=== PATIENT | male | born 1950 | race Caucasian/White ===

== ENCOUNTER → 2021-12-17 | Outpatient (CLI) | payer OTHER ==
[2021-12-17 17:09] LABS: BASOPHILS ABSOLUTE AUTO 0.08 K/mm3 (0.00-0.23); BASOPHILS PERCENT AUTO 1 % (0-2); EOSINOPHILS ABSOLUTE AUTO 0.22 K/mm3 (0.00-0.68); EOSINOPHILS PERCENT AUTO 2 % (0-6); Hematocrit 46.9 % (37.0-53.0); Hemoglobin 15.3 g/dL (13.5-17.5); IMMATURE GRAN ABSOLUTE AUTO 0.03 K/mm3 (0.00-0.10); IMMATURE GRAN PERCENT AUTO 0 % (0-1); LYMPHOCYTES ABSOLUTE AUTO 2.06 K/mm3 (0.84-5.20); LYMPHOCYTES PERCENT AUTO 19 % (21-46); MONOCYTES ABSOLUTE AUTO 0.72 K/mm3 (0.16-1.47); MONOCYTES PERCENT AUTO 7 % (4-13); Mean Corpuscular HGB 30.9 pg (26.0-34.0); Mean Corpuscular HGB Conc 32.6 g/dL (31.5-36.5); Mean Corpuscular Volume 95 fL (80-100); Mean Platelet Volume 10.9 fL (9.1-12.4); NEUTROPHILS ABSOLUTE AUTO 7.95 K/mm3 (1.96-9.15); NEUTROPHILS PERCENT AUTO 72 % (41-73); Platelet Count 307 K/mm3 (150-400); RDW Coefficient Variation 12.7 % (11.7-14.2); RDW Standard Deviation 44.6 fL (35.1-46.3); Red Blood Cell Count 4.95 M/mm3 (4.30-5.90); White Blood Cell Count 11.06 K/mm3 (4.00-11.30)
[2021-12-17 18:07] LABS: Alanine Aminotransfer (ALT/SGP 33 U/L (12-78); Albumin, Blood 3.9 g/dL (3.4-5.0); Albumin/Globulin Ratio 1.1 (0.8-1.8); Alk Phos 74 U/L (50-136); Anion Gap 6 mmol/L (6-16); Aspartate Aminotrans (AST/SGOT 20 U/L (12-37); Blood Urea Nitrogen 12 mg/dL (8-24); Bun/Creatinine Ratio 16.6 (12.0-20.0); CHOL/HDL RATIO 2.7; CO2, Blood 30 mmol/L (21-32); Calcium, Blood 9.4 mg/dL (8.5-10.1); Chloride, Blood 102 mmol/L (98-108); Cholesterol 140 mg/dL (50-200); Creatinine, Blood 0.72 mg/dL (0.60-1.20); Globulin, Blood 3.6 g/dL (2.2-4.0); Glomerular Filtration Rate 99 (60-); Glucose, Blood 95 mg/dL (70-99); HDL Cholesterol 52 mg/dL (>39); LDL/HDL RATIO 1.3; Low Density Lipoprotein Chol 70 mg/dL (0-110); Potassium, Blood 4.5 mmol/L (3.5-5.5); Sodium, Blood 138 mmol/L (136-145); Total Protein, Blood 7.5 g/dL (6.4-8.2); Triglycerides 91 mg/dL (30-160); Very Low Density Lipoprot Chol 18 mg/dL (6-32)
[2021-12-17 18:11] LABS: Thyroid Stimulating Hormone 0.701 uIU/mL (0.360-4.800)
== END | disposition home or self-care (01) ==
LOC: LAB SHORT 15:47
PROVIDERS: Family Medicine
DX: I10 Essential (primary) hypertension (principal)
CPT/HCPCS: 80053; 80061; 83036; 84443; 85025

== ENCOUNTER → 2022-12-30 | Outpatient (CLI) | payer OTHER | END | disposition home or self-care (01) | LOC: LAB SHORT 17:11 → LAB 17:11 | PROVIDERS: Family Medicine | DX: N40.0 Benign prostatic hyperplasia without lower urinary tract symptoms (principal) | CPT/HCPCS: G0103 ==

== ENCOUNTER 2023-02-07 17:30 | Inpatient (IN) | payer OTHER ==
[2023-02-07] MEDS ORDERED: Aspir 8181 MG PO (17:52)
[2023-02-07] MEDS ORDERED: ATOR40TA PO (17:52)
[2023-02-07] MEDS ORDERED: CYCL10 PO (17:52)
[2023-02-07] MEDS ORDERED: Norco 7.5-3251 EACH PO (17:53)
[2023-02-07] MEDS ORDERED: Prinivil10 MG PO (17:53)
[2023-02-07] MEDS ORDERED: FAMO40 PO (17:53)
[2023-02-07 18:22] LABS: BASOPHILS ABSOLUTE AUTO 0.06 K/mm3 (0.00-0.23); BASOPHILS PERCENT AUTO 0 % (0-2); EOSINOPHILS ABSOLUTE AUTO 0.04 K/mm3 (0.00-0.68); EOSINOPHILS PERCENT AUTO 0 % (0-6); Hematocrit 40.9 % (37.0-53.0); Hemoglobin 13.4 g/dL (13.5-17.5); IMMATURE GRAN ABSOLUTE AUTO 0.14 K/mm3 (0.00-0.10); IMMATURE GRAN PERCENT AUTO 1 % (0-1); LYMPHOCYTES ABSOLUTE AUTO 1.19 K/mm3 (0.84-5.20); LYMPHOCYTES PERCENT AUTO 8 % (21-46); MONOCYTES ABSOLUTE AUTO 0.85 K/mm3 (0.16-1.47); MONOCYTES PERCENT AUTO 5 % (4-13); Mean Corpuscular HGB 30.2 pg (26.0-34.0); Mean Corpuscular HGB Conc 32.8 g/dL (31.5-36.5); Mean Corpuscular Volume 92 fL (80-100); Mean Platelet Volume 10.5 fL (9.1-12.4); NEUTROPHILS ABSOLUTE AUTO 13.35 K/mm3 (1.96-9.15); NEUTROPHILS PERCENT AUTO 85 % (41-73); Platelet Count 352 K/mm3 (150-400); RDW Coefficient Variation 12.6 % (11.7-14.2); Red Blood Cell Count 4.43 M/mm3 (4.30-5.90); White Blood Cell Count 15.63 K/mm3 (4.00-11.30)
[2023-02-07 18:32] LABS: Albumin, Blood 2.6 g/dL (3.4-5.0); Albumin/Globulin Ratio 0.7 (0.8-1.8); Bilirubin, Total 0.6 mg/dL (0.1-1.0); Bun/Creatinine Ratio 20.6 (12.0-20.0); Calcium, Blood 8.5 mg/dL (8.5-10.1); Creatinine, Blood 0.78 mg/dL (0.60-1.20); Globulin, Blood 3.7 g/dL (2.2-4.0); Potassium, Blood 4.4 mmol/L (3.5-5.5); Total Protein, Blood 6.3 g/dL (6.4-8.2)
[2023-02-07] MEDS ORDERED: LIDO700A20 TOP (21:05)
[2023-02-07] MEDS ORDERED: TAMSULOSIN HCL0.4 M1 PO (21:09)
[2023-02-07 21:14] LABS: Influenza A, PCR NEGATIVE (NEGATIVE); Influenza B, PCR NEGATIVE (NEGATIVE); Resp Syncytial Virus, PCR NEGATIVE (NEGATIVE); SARS-Cov-2 (COVID-19) PCR, MMC NEGATIVE (NEGATIVE)
[2023-02-07 22:28] VITALS: BP 143/90
[2023-02-08 02:15] LABS: BASOPHILS ABSOLUTE AUTO 0.05 K/mm3 (0.00-0.23); BASOPHILS PERCENT AUTO 0 % (0-2); EOSINOPHILS ABSOLUTE AUTO 0.01 K/mm3 (0.00-0.68); EOSINOPHILS PERCENT AUTO 0 % (0-6); Hematocrit 42.5 % (37.0-53.0); Hemoglobin 14.4 g/dL (13.5-17.5); IMMATURE GRAN ABSOLUTE AUTO 0.14 K/mm3 (0.00-0.10); IMMATURE GRAN PERCENT AUTO 1 % (0-1); LYMPHOCYTES ABSOLUTE AUTO 0.51 K/mm3 (0.84-5.20); LYMPHOCYTES PERCENT AUTO 3 % (21-46); MONOCYTES ABSOLUTE AUTO 0.07 K/mm3 (0.16-1.47); MONOCYTES PERCENT AUTO 1 % (4-13); Mean Corpuscular HGB 30.6 pg (26.0-34.0); Mean Corpuscular HGB Conc 33.9 g/dL (31.5-36.5); Mean Corpuscular Volume 90 fL (80-100); Mean Platelet Volume 10.4 fL (9.1-12.4); NEUTROPHILS ABSOLUTE AUTO 14.19 K/mm3 (1.96-9.15); NEUTROPHILS PERCENT AUTO 95 % (41-73); Platelet Count 371 K/mm3 (150-400); RDW Coefficient Variation 12.5 % (11.7-14.2); RDW Standard Deviation 41.5 fL (35.1-46.3); Red Blood Cell Count 4.71 M/mm3 (4.30-5.90); White Blood Cell Count 14.97 K/mm3 (4.00-11.30)
[2023-02-08 02:50] LABS: Albumin, Blood 2.8 g/dL (3.4-5.0); Albumin/Globulin Ratio 0.7 (0.8-1.8); Bilirubin, Total 0.4 mg/dL (0.1-1.0); Bun/Creatinine Ratio 28.1 (12.0-20.0); Calcium, Blood 8.9 mg/dL (8.5-10.1); Creatinine, Blood 0.68 mg/dL (0.60-1.20); Globulin, Blood 4.3 g/dL (2.2-4.0); Potassium, Blood 4.5 mmol/L (3.5-5.5); Total Protein, Blood 7.1 g/dL (6.4-8.2)
[2023-02-08 03:38] VITALS: BP 133/97
--- NOTE | 2023-02-08 05:53 | NUR ---
SHIFT SUMMARY 72 YR M ADMITTED ON 02/07/23 FOR COPD EXACERBATION. DNR. PT WAS ORIGINALLY LISTED A FULL CODE BUT EXPRESSED TO HOSPITALIST THE HE WANTED TO BE DNR SO CODE STATUS WAS CHANGED. PER REPORT FROM ED, PT WAS TOLD TODAY THAT HE HAD LUNG CANCER. UPON ASSESSING PT, HE EXPRESSED TO THIS NURSE THAT HE HAD NOT BEEN GIVEN THAT INFORMATION. 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 PER INAGING, PT WAS ALSO DX WITH FX OF L2. PT STATED HE HAD A FALL MONTHS AGO AND HAS LOWER BACK PAIN SINCE THEN BUT HE WAS NOT AWARE OF THE FX. HE IS ON 2 L 02 AND HIS BREATHING IS LABORED BUT SATS ARE IN THE MID 90'2. SHE STATES THE HEAVY BREATHING IS NORMAL AND HE IS ON RA AT BASELINE. PT HAS BEEN EDUCATED ON IGNITION DANGER AND FIRE HAZARDS WHILE SMOKING WHENOXYGEN IS IN USE.
[2023-02-08 07:31] VITALS: BP 130/80
[2023-02-08] MEDS ORDERED: MULTI-VITAMIN1 EAC2 PO (09:24)
--- NOTE | 2023-02-08 10:54 | NUR ---
Received phone call from ANTONIO Huff in the [place] [facility]. Daria provides update and concerns regarding MRI results. She reports completing an AD with Pt and broaching the subject of hospice with Pt. Daria will obtain copy of directive she completed with Pt and fax to this RN for hospital medical records. Spoke with Dr Choudhary this AM prior to visiting with Pt and reviewed plan of care. Pt resting in bed and is A&OX4. Pt reports a tolerable 3/10 pain. He reports denying need for [place] for pain as he takes this at home with little benefit. He reports Ibuprofen is most beneficial with managing his pain. Pt denies nausea, reports dyspnea and anxiety. Pt's Selina and Pt's daughter Thuan are at bedside. Pt reports living with his , daughter Thuan lives in [facility], and has a son who lives in [facility]. Pt is a and reports serving in the [employer]. This RN thanked him for his service. Pt reports over the last few weeks he has become more tired and less energy. He reports not keeping up with his chores such as mowing the lawn but remains independent of his ADLs. He reports falling in to a sitting position in the shower recently, spouse reports surprise as Pt did not reveal this with her. Continued therpautic listening. Pt reports significant decrease in appetite over the last couple of weeks. Instructed if decreased appetite continues to discuss with PCP regarding appetite stimulates if appropriate. Engaged in gentle discussion regarding advanced care planning including planning for the future. Continued therapeutic listening and answered questions. Pt reports some impatatience and anxiety and wanting to move forward with work up of potential cancer diagnosis in order to know what to expect. Pt and family expresses appreciation and reports no other concerns at this time. Spoke with Pt's Primary RN Suzette and discussed case. Plan: Monitor for symptom management and supportive visits as needed. Palliative Care will remain available.
[2023-02-08 15:52] VITALS: BP 130/85
--- NOTE | 2023-02-08 18:08 | NUR ---
Pt's daughter in [facility] speaking with Primary RN Suzette requesting to see hospitalist to go over latest imaging results. Daughter request this RN to be present to answer any questions after physician leaves. Dr Elliott arrives and discusses results. Dr Elliott remains behind and answers questions. This RN remained behind, offered therapeutic listening and answered questions. Presented potential options and encouraged to see oncologist to learn more about options before making any decisions. Family expresses appreciation and reports no other concerns at this time. Scheduling has been problematic with getting diagnostics in a timely manner and may benefit from physician scheduling before his next PCP appointment. Palliative Care will remain available
--- NOTE | 2023-02-08 18:33 | NUR ---
SHIFT SUMMARY PT UP TO BATHROOM INDEPENDENTLY WITH RESP DISTRESS AND INCREASED BACK PAIN WITH MOVEMENT THAT SLOWLY RESOLVES WHEN HE RETURNS TO BED. FAMILY AT BEDSIDE MOST OF THE DAY. PALLIATIVE CARE IN WITH PT ON AND OFF WELL AND HELPED TO DISCUSS CT SCAN WITH MD THIS AFTERNOON. SLEEPING ON AND OFF THROUGH THE DAY.
[2023-02-08 19:06] VITALS: BP 148/89
[2023-02-09 05:01] VITALS: BP 145/94
--- NOTE | 2023-02-09 05:16 | NUR ---
SHIFT PRISCILANARY 72 YR M ADMITTED ON 02/07/23 FOR COPD EXACERBATION. DNR. NO ACUTE CHANGES THIS SHIFT. PT HAS SLEPT FOR MOST OF THIS SHIFT. HE AMBULATES INDEPENDANTLY TO THE BATHROOM BUT GETS SOB WITH EXERTION, EVEN WHEN KEEPING HIS O2 ON. HE IS PLEASANT AND COOPERATIVE WITH CARE. PT HAS BEEN EDUCATE ON IGNITION DANGER AND FIRE SAFETY REGARDING SMOKING WHILE OXYGEN IS IN USE.
[2023-02-09 06:24] LABS: BASOPHILS ABSOLUTE AUTO 0.03 K/mm3 (0.00-0.23); BASOPHILS PERCENT AUTO 0 % (0-2); EOSINOPHILS PERCENT AUTO 0 % (0-6); Hemoglobin 13.3 g/dL (13.5-17.5); IMMATURE GRAN PERCENT AUTO 1 % (0-1); LYMPHOCYTES ABSOLUTE AUTO 0.61 K/mm3 (0.84-5.20); LYMPHOCYTES PERCENT AUTO 3 % (21-46); MONOCYTES ABSOLUTE AUTO 0.73 K/mm3 (0.16-1.47); MONOCYTES PERCENT AUTO 4 % (4-13); Mean Corpuscular HGB 30.4 pg (26.0-34.0); Mean Corpuscular HGB Conc 34.1 g/dL (31.5-36.5); Mean Corpuscular Volume 89 fL (80-100); Mean Platelet Volume 10.3 fL (9.1-12.4); NEUTROPHILS ABSOLUTE AUTO 18.99 K/mm3 (1.96-9.15); NEUTROPHILS PERCENT AUTO 93 % (41-73); Platelet Count 391 K/mm3 (150-400); RDW Coefficient Variation 12.6 % (11.7-14.2); RDW Standard Deviation 41.2 fL (35.1-46.3); Red Blood Cell Count 4.37 M/mm3 (4.30-5.90); White Blood Cell Count 20.46 K/mm3 (4.00-11.30)
[2023-02-09 07:03] LABS: Bun/Creatinine Ratio 36.5 (12.0-20.0); Calcium, Blood 8.9 mg/dL (8.5-10.1); Creatinine, Blood 0.63 mg/dL (0.60-1.20); Potassium, Blood 4.6 mmol/L (3.5-5.5)
[2023-02-09 07:48] VITALS: BP 148/93
--- NOTE | 2023-02-09 10:18 | NUR ---
Pt resting in bed upon arrival. Pt expresses appreciation about going home today. Spouse Selina at bedside. Offered brief supportive visit and answered questions. Pt and family expresses appreciation and report no concerns at this time. Palliative Care will remain available
--- NOTE | 2023-02-09 11:09 | NUR ---
Spiritual Care Consult from Dr. Islas Pt. is awake in his bed and welcomes my visit. Pt. verbalizes that he does not practice jewish and that his designation on his chart dates back to his days in the . Pt. is unsettled however with his recent terminal diagnosis. Supported the Pt. by facilitating a life review and listening with empathy and interest. 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
[2023-02-09] MEDS ORDERED: IBUP600 PO (11:43)
[2023-02-09] MEDS ORDERED: PRED20 PO (11:43)
[2023-02-09] MEDS ORDERED: ACET325 PO (11:43)
[2023-02-09] MEDS ORDERED: IPRAT-ALBUT 0.5-3 ML INH (11:44)
--- NOTE | 2023-02-09 13:30 | NUR ---
DISCHARGE INSTRUCTIONS COMPLETED AND DISCUSSED WITH PT EXPRESSING UNDERSTANDING WITH AND DAUGHTER IN ATTENDANCE. BROUGHT HOME O2 IN FOR DISCHARGE. [facility] TO [facility]IA [facility]/C.
[2023-02-10 15:09] LABS: A/G RATIO 0.8 (0.7-1.7); ALBUMIN 2.8 g/dL (2.9-4.4); ALPHA-1-GLOBULIN 0.3 g/dL (0.0-0.4); ALPHA-2-GLOBULIN 0.9 g/dL (0.4-1.0); BETA GLOBULIN 0.9 g/dL (0.7-1.3); GAMMA GLOBULIN 1.3 g/dL (0.4-1.8); GLOBULIN, TOTAL 3.4 g/dL (2.2-3.9); M-SPIKE Not Observed g/dL (Not Observed); PROTEIN, TOTAL, SERUM 6.2 g/dL (6.0-8.5)
== END 2023-02-09 13:31 | disposition home or self-care (01) | DRG 193 ==
LOC: ER 17:30 → MEDS 17:31
PROVIDERS: Emergency Medicine; Family Medicine; Student in an Organized Health Care Education/Training Program; ADMIT Internal Medicine
DX: J18.9 Pneumonia, unspecified organism (principal); J96.01 Acute respiratory failure with hypoxia; J44.1 Chronic obstructive pulmonary disease with (acute) exacerbation; R64 Cachexia; M48.56XA Collapsed vertebra, not elsewhere classified, lumbar region, initial encounter for fracture; J44.0 Chronic obstructive pulmonary disease with (acute) lower respiratory infection; Z68.1 Body mass index [BMI] 19.9 or less, adult; M54.50 Low back pain, unspecified; F17.210 Nicotine dependence, cigarettes, uncomplicated; R91.1 Solitary pulmonary nodule; Z66 Do not resuscitate; E78.5 Hyperlipidemia, unspecified; Z86.73 Personal history of transient ischemic attack (TIA), and cerebral infarction without residual deficits; Z79.82 Long term (current) use of aspirin; Z79.899 Other long term (current) drug therapy; Z20.822 Contact with and (suspected) exposure to COVID-19
CPT/HCPCS: 0241U; 36415; 71260; 74176; 80048; 80053; 83880; 84145; 84484; 85025; 93005; 93010; 94640; 94664; 94760; 96365-59; 96375-59; 97110; 97161; 97166; 97530; 97535; 99285-25; A9270; J0456; J0696; J1650; J2930; J7050; Q9967

== ENCOUNTER 2023-02-15 20:20 | Inpatient (IN) | payer OTHER ==
[~2023-02-15] VITALS: Ht 172.7 cm; Wt 55.0 kg
[~2023-02-15 20:20] MED LIST: ACET325 PO; ATOR40TA PO; Aspir 8181 MG PO; CYCL10 PO; FAMO40 PO; IBUP600 PO; IPRAT-ALBUT 0.5-3 ML INH; LIDO700A20 TOP; MULTI-VITAMIN1 EAC2 PO; Norco 7.5-3251 EACH PO; PRED20 PO; Prinivil10 MG PO; TAMSULOSIN HCL0.4 M1 PO
[2023-02-15 21:13] LABS: BASOPHILS ABSOLUTE AUTO 0.03 K/mm3 (0.00-0.23); BASOPHILS PERCENT AUTO 0 % (0-2); EOSINOPHILS ABSOLUTE AUTO 0.01 K/mm3 (0.00-0.68); EOSINOPHILS PERCENT AUTO 0 % (0-6); Hemoglobin 14.9 g/dL (13.5-17.5); IMMATURE GRAN ABSOLUTE AUTO 0.08 K/mm3 (0.00-0.10); IMMATURE GRAN PERCENT AUTO 0 % (0-1); LYMPHOCYTES ABSOLUTE AUTO 0.72 K/mm3 (0.84-5.20); LYMPHOCYTES PERCENT AUTO 4 % (21-46); MONOCYTES PERCENT AUTO 4 % (4-13); Mean Corpuscular HGB 30.2 pg (26.0-34.0); Mean Corpuscular HGB Conc 33.1 g/dL (31.5-36.5); Mean Corpuscular Volume 91 fL (80-100); Mean Platelet Volume 10.4 fL (9.1-12.4); NEUTROPHILS ABSOLUTE AUTO 16.72 K/mm3 (1.96-9.15); NEUTROPHILS PERCENT AUTO 92 % (41-73); Platelet Count 502 K/mm3 (150-400); RDW Coefficient Variation 12.7 % (11.7-14.2); RDW Standard Deviation 43.1 fL (35.1-46.3); Red Blood Cell Count 4.93 M/mm3 (4.30-5.90); White Blood Cell Count 18.26 K/mm3 (4.00-11.30)
[2023-02-15 21:28] LABS: Albumin, Blood 3.1 g/dL (3.4-5.0); Albumin/Globulin Ratio 0.8 (0.8-1.8); Bilirubin, Total 0.5 mg/dL (0.1-1.0); Calcium, Blood 8.7 mg/dL (8.5-10.1); Creatinine, Blood 0.63 mg/dL (0.60-1.20); Globulin, Blood 3.8 g/dL (2.2-4.0); Potassium, Blood 4.6 mmol/L (3.5-5.5); Total Protein, Blood 6.9 g/dL (6.4-8.2)
[2023-02-16] VITALS (7 sets, daily range): BP systolic 129–163; BP diastolic 78–94
--- NOTE | 2023-02-16 01:30 | NUR ---
ARRIVAL TO PCU9 / SAFETY & EDUCATION PT ARRIVED TO PCU9 AT APPROXIMATELY 0115. PT TRANSFERED FROM [facility] TO HOSPITAL BED WITH SBA. PT STOOD AN USED URINAL AT BEDSIDE UPON ARRIVAL. PT A&Ox4, COMMUNICATES NEEDS APPROPRIATELY, ORIENTED TO CALL LIGHT/UNIT/ BP STABLE, ST 100's, DENIES CP/PRESSURE. SpO2> 92% 3L VIA NC, REPORTS SOB AT REST. FAMILY AT BEDSIDE DURING ADMISSION. BED IN LOWEST POSITION, CALL LIGHT IN REACH. PT & FAMILY EDUCATED RE: IGINITION SOURCES AND RISK OF INJURY WHILE OXYGEN IS IN USE. PT DENIES SMOKING & PT AND FAMILY VERBALIZE UNDERSTANDING.
[2023-02-16] MEDS ORDERED: Norco 7.5-3251 EACH PO (01:34)
[2023-02-16 04:23] LABS: BASOPHILS ABSOLUTE AUTO 0.01 K/mm3 (0.00-0.23); BASOPHILS PERCENT AUTO 0 % (0-2); EOSINOPHILS PERCENT AUTO 0 % (0-6); Hematocrit 41.4 % (37.0-53.0); Hemoglobin 13.7 g/dL (13.5-17.5); IMMATURE GRAN ABSOLUTE AUTO 0.06 K/mm3 (0.00-0.10); IMMATURE GRAN PERCENT AUTO 0 % (0-1); LYMPHOCYTES PERCENT AUTO 4 % (21-46); MONOCYTES ABSOLUTE AUTO 0.23 K/mm3 (0.16-1.47); MONOCYTES PERCENT AUTO 2 % (4-13); Mean Corpuscular HGB 30.2 pg (26.0-34.0); Mean Corpuscular HGB Conc 33.1 g/dL (31.5-36.5); Mean Corpuscular Volume 91 fL (80-100); Mean Platelet Volume 10.5 fL (9.1-12.4); NEUTROPHILS ABSOLUTE AUTO 12.69 K/mm3 (1.96-9.15); NEUTROPHILS PERCENT AUTO 94 % (41-73); Platelet Count 343 K/mm3 (150-400); RDW Coefficient Variation 12.7 % (11.7-14.2); RDW Standard Deviation 42.5 fL (35.1-46.3); Red Blood Cell Count 4.53 M/mm3 (4.30-5.90); White Blood Cell Count 13.49 K/mm3 (4.00-11.30)
--- NOTE | 2023-02-16 04:41 | NUR ---
SHIFT SUMMARY SEE PREVIOUS NOTE A&Ox4, CALLS AND COMMUNICATES NEEDS APPROPRIATELY. BP STABLE, SR-ST 80-100's, DENIES CP/PRESSURE. SpO2> 92% 3L VIA NC OR BIPAP w/ 3L BLEED IN. REPORTS SOB AT REST. CONTINENT OF URINE, USES URINAL AT BEDSIDE WITH ASSISTANCE. NO BM THIS SHIFT. LR INFUSING PER EMAR. NO OTHER EVENTS, WILL REPORT TO ONCOMING RN.
[2023-02-16 04:47] LABS: Albumin, Blood 2.7 g/dL (3.4-5.0); Albumin/Globulin Ratio 0.8 (0.8-1.8); Bilirubin, Total 0.3 mg/dL (0.1-1.0); Bun/Creatinine Ratio 36.6 (12.0-20.0); Calcium, Blood 8.4 mg/dL (8.5-10.1); Creatinine, Blood 0.55 mg/dL (0.60-1.20); Globulin, Blood 3.4 g/dL (2.2-4.0); Potassium, Blood 4.3 mmol/L (3.5-5.5); Total Protein, Blood 6.1 g/dL (6.4-8.2)
--- NOTE | 2023-02-16 05:55 | NUR ---
NOTIFIED PHYSICIAN PT SAT UP AT EDGE OF BED, BECAME VERY SOB ANXIOUS. WORK OF BREATHING BECAME SIGNIFICANTLY INCREASED. HR UP TO 130's, D/T PT MOVING AND BEING RESTLESS THIS RN WAS UNABLE TO GET AN ACCURATE SpO2. RT NOTIFED AND CAME TO BEDSIDE. PHYSICIAN NOTIFIED OF EVENT, THIS RN REQUESTED SOMETHING FOR ANXIETY. PHYSICIAN STATED THAT THEY WOULD THINK ABOUT IT AND LOOK INTO CHART. NO NEW ORDERS AT THIS TIME. BED IN LOWEST POSITION, CALL LIGHT IN REACH, BED ALARM ON, BREATHING TREATMENT BEING ADMINISTERED THROUGH BIPAP.
[2023-02-16 08:42] LABS: PCO2 Arterial 42.8 mmHg (35-45); PO2 Arterial 60.5 mmHg (80-100); pH Blood Arterial 7.47 (7.35-7.45)
--- NOTE | 2023-02-16 10:23 | NUR ---
ASSUMED CARE: ASSUMED CARE OF PT APPROX 0715. PT A&OX4, SITTING UP IN BED WITH BIPAP ON. RT AT BEDSIDE THIS AM FOR BREATHING TREATMENT. PT UP AT BEDSIDE TO USE URINAL, RR INCREASE WITH EXERTION. PT REPORTS SOB/DIFFICULTY BREATHING. SPO2 >90%, RR DECREASED TO <20 AT REST. HOB ELEVATED. NO FURTHER NEEDS AT THIS TIME, CALL LIGHT WITHIN REACH.
--- NOTE | 2023-02-16 10:47 | NUR ---
Breif supportive visit this AM. Pt resting in bed and on BIPAP. Difficult to understand Pt due to BIPAP mask and when Pt's attempts to speak alarm sounds. Pt agreeable for this RN to F/U when able to take breaks off BIPAP. Palliative Care will remain available
--- NOTE | 2023-02-16 11:04 | NUR ---
SAFETY EDUCATION: PT EDUCATED ON FIRE SAFETY AND IGNITION SOURCES AT THE HOSPITAL. PT VOICED UNDERSTANDING.
--- NOTE | 2023-02-16 13:08 | NUR ---
Received call reporting Pt's family has arrived and would like to speak with Palliative Care. Pt resting in bed and wearing BIPAP. Pt's and sister at bedside. Listened as Pt and family reporting Pt consider " with dignity". Provided information regarding with dignity and discussed considering hospice. Pt reports plan to Follow through with PET scan and speaking with oncology. He reports no definite plan and goal is to obtain as much information regarding his options. Continued therapeutic listening and answered questions. Brief and gentle education on advanced care planning. Pt and family express appreciation and report no other concerns at this time. Spoke with Primary RN Shavon and discussed case. Palliative Care will remain available
--- NOTE | 2023-02-16 17:25 | NUR ---
SHIFT SUMMARY: PT A&OX4, ABLE TO CALL AND MAKE NEEDS KNOWN TO STAFF. HR MOSTLY 90'S-110'S. SBP 140'S-160'S, PT DENIES CP/PRESSURE. SPO2 >90% ON 7L NC OR BIPAP WITH 6L BLEED IN. PT REPORTS SOB AT REST, WORSENS WITH EXERTION. PT WITH C/O PAIN IN LOWER BACK, MEDICATED PER EMAR. PT CONTINENT OF URINE, ABLE TO USE URINAL AT BEDSIDE WITH SBA. NO BM'S THIS SHIFT. NS AND ZOSYN INFUSING PER EMAR. FAMILY AT BEDSIDE. CALL LIGHT WITHIN REACH, NO FURTHER NEEDS AT THIS TIME. WILL REPORT TO ONCOMING RN.
[2023-02-17 04:13] VITALS: BP 125/83
[2023-02-17 04:41] LABS: Base Excess Venous 6.8 mmol/L; Bicarbonate Venous 30.1 mmol/L (24.0-30.0); PCO2 Venous 39.6 mmHg (38-42); pH Blood Venous 7.49 (7.34-7.37)
[2023-02-17 05:11] LABS: Hematocrit 36.7 % (37.0-53.0); Hemoglobin 12.4 g/dL (13.5-17.5); Mean Corpuscular HGB 30.3 pg (26.0-34.0); Mean Corpuscular HGB Conc 33.8 g/dL (31.5-36.5); Mean Corpuscular Volume 90 fL (80-100); Mean Platelet Volume 10.5 fL (9.1-12.4); Platelet Count 338 K/mm3 (150-400); RDW Standard Deviation 42.8 fL (35.1-46.3); Red Blood Cell Count 4.09 M/mm3 (4.30-5.90); White Blood Cell Count 15.99 K/mm3 (4.00-11.30)
[2023-02-17 05:25] LABS: Bun/Creatinine Ratio 24.2 (12.0-20.0); Calcium, Blood 8.3 mg/dL (8.5-10.1); Creatinine, Blood 0.66 mg/dL (0.60-1.20); Potassium, Blood 4.3 mmol/L (3.5-5.5)
--- NOTE | 2023-02-17 05:39 | NUR ---
SHIFT SUMMARY THIS RN ASSUMED CARE OF PATIENT AT 1900. NO ACUTE CHANGES OVERNIGHT. BP STABLE. SR/ST ON MONITOR WITH HR 80-100'S. AFEBRILE. SPO2 >92% ON 6-7L VIA NC. INCREASING O2 FOR ACTIVITY. DYSPNEA WITH EXERTION. PT REFUSED BIPAP DURING THIS SHIFT. NO INCREASED WOB NOTED DURING THE NIGHT. CALLING APPROPRIATELY. SBA WITH URINAL. IGNITION RISK/SAFETY ASSESSMENT AND EDUCATION COMPLETE. BED IN LOWEST POSITION AND CALL LIGHT WITHIN REACH. THIS RN WILL CONTINUE TO MONITOR UNTIL SHIFT CHANGE AT 0700.
[2023-02-17 07:51] VITALS: BP 166/98
--- NOTE | 2023-02-17 10:45 | NUR ---
AM NOTE: PT UP WITH RT THIS AM TO USE URINAL AT BEDSIDE. SPO2 DEMANDS INCREASED, WOB INCREASED. HI AGUSTÍN O2 TITRATED UP TO 10L VIA NC. SPO2 >92% ON 10L. TITRATED DOWN TO 8L APPROX 1000 WITH SPO2 >92%. SPO2 TITRATED DOWN TO 7L AT 0745 WITH CURRENT SPO2 95%.
[2023-02-17 12:03] VITALS: BP 137/77
--- NOTE | 2023-02-17 12:53 | NUR ---
SAFETY EDUCATION: PT EDUCATED ON FIRE SAFETY AND IGNITION SOURCES AT THE HOSPITAL. PT VOICED UNDERSTANDING.
--- NOTE | 2023-02-17 13:21 | NUR ---
Brief supportive visit this afternoon. Pt resting in bed with his eyes closed. Pt wakes to gentle verbal stimuli. Pt reports a tolerable 2/10 pain and states his SOB has improved. Pt reports no concerns at this time. Ended visit to allow Pt to rest. Spoke with Pt's Primary RN Shavon and discussed case. Palliative Care will remain available
[2023-02-17 16:48] VITALS: BP 135/91
--- NOTE | 2023-02-17 17:46 | NUR ---
END OF SHIFT NOTE: PT A&O X4 THIS SHIFT. ABLE TO CALL APPROPRIATELY AND MAKE NEEDS KNOWN TO STAFF. HR 90'S-110'S, BP STABLE. PT DENIES CP/PRESSURE. O2 TITRATED TO 4L VIA NC, SPO2 >90%. O2 INCREASES TO 6-7L WITH EXERTION, ABLE TO TITRATE BACK TO 4L AT REST. PT UP TO CHAIR THIS SHIFT. FLUTTER VALVE DEMONSTRATED TO PT, EDUCATED ON BENEFITS. SBA AT BEDSIDE WITH URINAL. 1 LARGE, HARD BM IN BSC THIS PM, MIRALAX GIVEN PER EMAR. PT REPORTS IMPROVEMENT IN LOW BACK PAIN, DECLINED PAIN MEDICATION THIS PM. FAMILY AT BEDSIDE. CALL LIGHT WITHIN REACH, NOO FURTHER NEEDS AT THIS TIME. WILL REPORT TO ONCOMING RN.
[2023-02-17 19:43] VITALS: BP 140/94
--- NOTE | 2023-02-17 21:20 | NUR ---
ASSUMPTION OF CARE/PATIENT UPDATE THIS RN ASSUMED CARE OF PATIENT AT 1900. THIS RN WAS CALLED TO PATIENT ROOM AT 1999 BY FAMILY FOR INCREASED SOB. PT PREVIOUSLY ON 4L VIA NC. THIS RN INCREASED HIF[place] NC TO 9L. PT'S SPO2 >92%, HOWEVER, INCREASED WOB NOTED WITH RR 30'S. RETRACTIONS AND TRIPODING. THIS RN PLACED PT BACK ON BIPAP. CALLED RT NISH TO ROOM TO ASSESS PT. BREATHING TREATMENTS GIVEN PER EMAR BY RT. PATIENT CONTINUES TO BE ON BIPAP; RT INCREASED PRESSURE SETTINGS. RR NOW AT 20-24. FAMILY REMAINS AT BEDSIDE. PT NOW LYING IN BED. OTHER VITALS STABLE. BED IN LOWEST POSITION AND CALL LIGHT WITHIN REACH.
[2023-02-17 23:38] VITALS: BP 142/93
[2023-02-18 03:45] VITALS: BP 139/88
[2023-02-18 03:58] LABS: Hematocrit 39.4 % (37.0-53.0); Hemoglobin 13.3 g/dL (13.5-17.5); Mean Corpuscular HGB 30.4 pg (26.0-34.0); Mean Corpuscular HGB Conc 33.8 g/dL (31.5-36.5); Mean Corpuscular Volume 90 fL (80-100); Mean Platelet Volume 10.5 fL (9.1-12.4); Platelet Count 369 K/mm3 (150-400); RDW Coefficient Variation 13.2 % (11.7-14.2); RDW Standard Deviation 43.6 fL (35.1-46.3); Red Blood Cell Count 4.37 M/mm3 (4.30-5.90); White Blood Cell Count 14.89 K/mm3 (4.00-11.30)
[2023-02-18 04:15] LABS: Bun/Creatinine Ratio 24.7 (12.0-20.0); Calcium, Blood 8.7 mg/dL (8.5-10.1); Creatinine, Blood 0.69 mg/dL (0.60-1.20); Potassium, Blood 4.1 mmol/L (3.5-5.5)
--- NOTE | 2023-02-18 04:46 | NUR ---
SHIFT SUMMARY SEE PREVIOUS NOTE AND ASSESSMENT. PT WAS ABLE TO TITRATE DOWN TO 4-5L VIA HIFLOW NC EARLIER IN THIS SHIFT. PT ASKED THIS RN TO PLACE HIM BACK ON BIPAP AROUND 0430 TO "TAKE A BREAK". PT CONTINUES TO HAVE DYSPNEA WITH ANY EXERTION. TITRATING NEEDED. PRN BREATHING TX. BP STABLE. SR/ST ON MONITOR WITH HR 80-100'S. AFEBRILE. ALERT AND ORIENTED FULLY. ABLE TO MAKE NEEDS KNOWN. USING URINAL WITH SBA AT BEDSIDE. IGNITION RISK/SAFETY ASSESSMENT AND EDUCATION COMPLETE. PT VERBALIZED UNDERSTANDING; NICOTINE PATCH IN PLACE. BED IN LOWEST POSITION AND CALL LIGHT WITHIN REACH. THIS RN WILL CONTINUE TO MONITOR UNTIL SHIFT CHANGE AT 0700.
[2023-02-18 07:26] VITALS: BP 135/87
--- NOTE | 2023-02-18 09:32 | NUR ---
AM UPDATE: PT IN BED ON 9L HI AGUSTÍN N/C THIS AM. STATES "I FEEL LIKE I CAN'T BREATHE" WITH NOTICEABLE DYSPNEA. SPO2 85-90%. PT SITTING ON SIDE OF BED IN TRIPOD POSITION. PT REQUESTED TO BE TRANSITIONED TO BIPAP, RT DIANA TO BEDSIDE. SPO2 >90% ON BIPAP.
--- NOTE | 2023-02-18 12:50 | NUR ---
pt anxious and labored. He is crying and very distruaght want to be put out of his misery. We reviewed air hunger and fatigue. Call to physician pt placed on modified comfort care. Pt now resting and able to get some sleep. Will continue close monitoring. pt remains on antibiotics and steroids. Will keep tele on til we get medication correct and then DC
--- NOTE | 2023-02-18 13:45 | NUR ---
Pt fainaly resting well. Review with telemetry ectopy improved and no bigeminy. Will continue to monitor and remove telemetry as we transition. Will review with pt and family in am and with physicians on best plan of care. review with pt and family. Best care would be hospice. symptoms and moral distress was escalating to great fear of a pinfull . will involve chaplian.
--- NOTE | 2023-02-18 14:32 | NUR ---
UPDATE: SPOKE WITH RT DIANA REGARDING BREATHING TX. DIANA ASKED FOR CLARIFICATION REGARDING PT'S ORDERS WHEN SLEEPING/POSSIBLE PRN. CALL PLACED TO DR. MAC. DR. MAC WITH ORDERS TO CONTINUE SCHEDULED BREATHING TX PER EMAR BUT HOLD IF PT IS SLEEPING. RT DIANA NOTIFIED.
--- NOTE | 2023-02-18 18:19 | NUR ---
END OF SHIFT NOTE: PT A&OX4 THIS SHIFT. INCREASED WOB/O2 DEMAND THIS AM. PT PLACED BACK ON BIPAP, SEE PREVIOUS NOTE. HR 90'S-100'S, NSR THIS AM. BP STABLE. SPO2 >90% ON 9-10L O2 VIA HIFLO NC. PALLIATIVE CARE TO BEDSIDE THIS AM AFTER PT VOICED THAT HE "IS TIRED OF LIVING AND WANTS TO BE PUT OUT OF HIS MISERY". FAMILY AND PT SPOKE WITH ANTONIO SERRANO AND DETERMINED THAT COMFORT CARE AND DISCHARGE ON HOSPICE CARE WAS THE BEST DECISION FOR PT. ANTIBIOTICS TO BE CONTINUED PER EMAR, ZOSYN CURRENTLY INFUSING. PT RESTING IN BED, ROXINOL ADMINISTERED PER EMAR. PT REPORTS IMPROVEMENT IN PAIN AND WOB WITH ROXINOL. CALL LIGHT WITHIN REACH, NO FURTHER NEEDS AT THIS TIME. WILL REPORT TO ONCOMING RN.
--- NOTE | 2023-02-19 06:03 | NUR ---
END OF SHIFT COMFORT CARE NOTE. PATIENT IS NOW CONFUSED/ANXIOUS WHEN AWAKE. ORDER FOR ATIVAN RECEIVED. OTHERWISE PT HAS BEEN RESTING DURING THE SHIFT WITHOUT S/S OF DISTRESS/DISCOMFORT. O2 NC ON FOR COMFORT. CONDOM CATHETER AND ATTENDS IN PLACE. REPOSITIONING Q2HRS. MEDICATED PER EMAR APPROPRIATE. BED IN LOWEST POSITION AND CALL LIGHT WITHIN REACH.
--- NOTE | 2023-02-19 14:50 | NUR ---
Family at bedside pt reting well. Ventilation much less labored. Family chose [facility]. they have friends who have sed their services and made the recomendation. Packet sent will update care managers.
--- NOTE | 2023-02-19 17:56 | NUR ---
SHIFT SUMMARY; ASSUMED CARE AT 0700. PT ON COMFORT CARE. MEDICATED PER ORDERS WITH ROXINOL FOR AIR HUNGER, TOLERATED WELL. A/A/OX4, FAMILY AT BEDSIDE DURING SHIFT. REPOSITIONS SELF ON BED, CONDOM CATH IN PLACE. 10L 02 VIA NC FOR COMFORT. DISCUSSED AND EDUCATED ABOUT IGNITION RISK. NO LIGHTERS OR CIGARETTES IN ROOM. REPORT GIVEN TO ANTONIO FISHMAN ON MEDICAL FLOOR FOR IN HOUSE TRANSFER.
--- NOTE | 2023-02-19 19:18 | NUR ---
PT ARRIVED TO ROOM 313 VIA BED AT 1815. FAMILY ARRIVED WITH PT. SETTLED IN TO ROOM AND DENIES PAIN.
--- NOTE | 2023-02-20 06:44 | NUR ---
NO COMPLAINTS OF PAIN, NO PRN MEDS GIVEN. STANDS AT BEDSIDE TO USE URINAL, DOES NOT CALL APPROPRIATELY, PLEASANT. SOB WITH ACTIVITY, INCLUDING STANDING TO USE URINAL.
--- NOTE | 2023-02-20 17:08 | NUR ---
COMFORT CARE SUMMARY PATIENT IS ALERT BUT NOT ORIENTED. PATIENT HAS BEEN MEDICATED FOR PAIN AND DIFFICULTY BREATHING IN THE BEGINNING OF SHIFT. PATIENT HAS BEEN RESTING MOST OF SHIFT. PATIENTS FAMILY HAS BEEN WITH PATIENT MOST OF SHIFT. BED IN LOCKED AND LOWEST POSITION. CALL LIGHT IN PLACE. WILL MONITOR UNTIL SHIFT CHANGE.
--- NOTE | 2023-02-21 05:57 | NUR ---
PATIENT HAS BEEN RESTING WELL ON 3L O2, AIR HUNGER, AGGITATION, AND PAIN TREATED X2 WITH GOOD RESULTS. AT ONE POINT PATIENT GOT OOB AND PULLED HIS IV, WAS CONFUSED AND SOB. NO OTHER ISSUES TO REPORT.
[2023-02-21] MEDS ORDERED: PRED20 PO (10:11)
[2023-02-21] MEDS ORDERED: BUDE.25 INH (10:14)
[2023-02-21] MEDS ORDERED: GUAI600T33 PO (10:14)
[2023-02-21] MEDS ORDERED: MORP20L PO (10:15)
[2023-02-21] MEDS ORDERED: PROM12.5S PR (10:15)
[2023-02-21] MEDS ORDERED: Nicoderm Cq1 EAC1 TOP (10:15)
[2023-02-21] MEDS ORDERED: AMOCLA875 PO (10:16)
--- NOTE | 2023-02-21 13:15 | NUR ---
PATIENT D/C'D TO HOME WITH HOSPICE VIA AMBULANCE TRANSPORT. [facility] TO MEET PATIENT AT HOME. DC INSTRUCTIONS AND EDUCATION GIVEN TO FAMILY. FAMILY AND PATIENT DENY ANY FURTHER QUESTIONS OR CONCERNS.
== END 2023-02-21 13:15 | disposition hospice, home (50) | DRG 871 ==
LOC: ER 20:20 → MEDS 22:54 → PCU 22:54 → MEDS 02-19 18:21 → ENPENDDIS 02-21 09:31 → MEDS 02-21 13:15
PROVIDERS: Internal Medicine; Physician Assistant; Student in an Organized Health Care Education/Training Program; ADMIT Internal Medicine
PROC: 5A09357 Assistance with Respiratory Ventilation, Less than 24 Consecutive Hours, Continuous Positive Airway Pressure (ICD-10-PCS; principal; 2023-02-15)
PROC: 3E03329 Introduction of Other Anti-infective into Peripheral Vein, Percutaneous Approach (ICD-10-PCS; 2023-02-15)
PROC: 4A033R1 Measurement of Arterial Saturation, Peripheral, Percutaneous Approach (ICD-10-PCS; 2023-02-16)
DX: A41.9 Sepsis, unspecified organism (principal); J18.9 Pneumonia, unspecified organism; J96.21 Acute and chronic respiratory failure with hypoxia; J44.1 Chronic obstructive pulmonary disease with (acute) exacerbation; J44.0 Chronic obstructive pulmonary disease with (acute) lower respiratory infection; Z68.1 Body mass index [BMI] 19.9 or less, adult; C79.51 Secondary malignant neoplasm of bone; E87.1 Hypo-osmolality and hyponatremia; E87.20 Acidosis, unspecified; M48.56XA Collapsed vertebra, not elsewhere classified, lumbar region, initial encounter for fracture; E44.0 Moderate protein-calorie malnutrition; Z51.5 Encounter for palliative care; Z66 Do not resuscitate; E27.9 Disorder of adrenal gland, unspecified; R65.20 Severe sepsis without septic shock; E78.5 Hyperlipidemia, unspecified; R91.1 Solitary pulmonary nodule; I10 Essential (primary) hypertension; K21.9 Gastro-esophageal reflux disease without esophagitis; F17.210 Nicotine dependence, cigarettes, uncomplicated; Z79.82 Long term (current) use of aspirin; Z79.891 Long term (current) use of opiate analgesic; Z79.899 Other long term (current) drug therapy; Z79.1 Long term (current) use of non-steroidal anti-inflammatories (NSAID); Z86.73 Personal history of transient ischemic attack (TIA), and cerebral infarction without residual deficits; Z85.118 Personal history of other malignant neoplasm of bronchus and lung; Z99.81 Dependence on supplemental oxygen
CPT/HCPCS: 36415; 36600; 71045; 80048; 80053; 82803; 83605; 83880; 85025; 85027; 87040; 87070; 87106; 87205; 93005; 93010; 94640; 94644; 94660; 94664; 94760; 94762; 96365; 96367; 96375; 97110; 97161; 97530; 99285-25; A9270; J0456; J0696; J1650; J2060; J2543; J2930; J7030; J7050; J7120